=== PATIENT | female | born 1975 | race Caucasian/White ===

== ENCOUNTER 2019-11-18 10:08 | Day surgery (SDC) | payer MEDICARE ==
[~2019-11-18] VITALS: Ht 165.1 cm; Wt 77.1 kg
[~2019-11-18 10:08] MED LIST: HYDROmorphone 2 MG/ML VIAL IV PRN; IV RINGERS,LACTATED 1000ML 1,000 ML IV SCH; MORPHINE SULFATE 2 MG/ML VIAL. IV PRN; ONDANSETRON PF 4 MG/2 ML VIAL. IV PRN; PROCHLORPERAZINE 10 MG/2 ML VIAL. IV PRN; fentaNYL PF VIAL 100 MCG/2 ML VIAL IV PRN
--- NOTE | 2019-11-18 10:58 | PDOC1 ---
History and Physical Date of Admission Date of Admission DATE: 11/18/19 TIME: 10:57 Identification/Chief Complaint Chief Complaint for right foot surgery is npo, DENIES NEW SYMPTOMS, RIGHT FOOT PAINFUL X MONTHS, Surgery planned for today out patient Past Medical History Past Medical History schizophrenia Cardiovascular: HTN, Hyperlipidemia Pulmonary: No pertinent hx Psych: Addictions, Schizophrenia Musculoskeletal: Osteoarthritis Family History Family History: Hypertension, Obesity Social History Smoke: <1 pack per day ALCOHOL: other (BINGE DRINKS TWICE A WEEK, 6-8 BEERS) Drugs: None Current Medications Current Medications Current Medications Ondansetron HCl (Zofran) 4 mg PRN Q6HRS PRN IV NAUSEA/VOMITING; Start 11/18/19 at 07:00; Stop 11/19/19 at 06:59 Fentanyl Citrate (Fentanyl 2ml Vial) 25 mcg PRN Q5MIN PRN IV MILD PAIN 1-3; Start 11/18/19 at 07:00; Stop 11/19/19 at 06:59 Fentanyl Citrate (Fentanyl 2ml Vial) 50 mcg PRN Q5MIN PRN IV MODERATE TO SEVERE PAIN; Start 11/18/19 at 07:00; Stop 11/19/19 at 06:59 Morphine Sulfate (Morphine Sulfate) 1 mg PRN Q10MIN PRN IV SEVERE PAIN 7-10; Start 11/18/19 at 07:00; Stop 11/19/19 at 06:59 Ringer's Solution 1,000 ml @ 30 mls/hr Q24H IV ; Start 11/18/19 at 07:00; Stop 11/18/19 at 18:59 Hydromorphone HCl (Dilaudid) 0.5 mg PRN Q10MIN PRN IV SEV PAIN, Second choice; Start 11/18/19 at 07:00; Stop 11/19/19 at 06:59 Prochlorperazine Edisylate (Compazine) 5 mg PACU PRN PRN IV NAUSEA, MRX1; Start 11/18/19 at 07:00; Stop 11/19/19 at 06:59 Cefazolin Sodium/ Dextrose 50 ml @ 100 mls/hr 1X PREOP PRN IV PRIOR TO PROCEDURE; Start 11/18/19 at 06:00; Stop 11/18/19 at 18:00 Allergies Allergies: Coded Allergies: Sulfa (Sulfonamide Antibiotics) (Verified Allergy, Unknown, Hives, 11/18/19) aripiprazole (Verified Allergy, Unknown, Unknown, 11/18/19) quetiapine (Verified Allergy, Unknown, Unknown, 11/18/19) risperidone (Verified Allergy, Unknown, Unknown, 11/18/19) tramadol (Verified Allergy, Unknown, Nausea and Vomiting, 11/18/19) ziprasidone (Verified Allergy, Unknown, Unknown, 11/18/19) ROS General: No: Chills, Night Sweats, Fatigue, Malaise, Appetite, Other Eyes: No Blurry vision, No Decreased vision, No Double vision, No Dry eyes, No Excessive tearing, No Eye Pain, No Itchy Eyes, No Loss of vision, No Photophobia, No Scotomata, No Uses contacts, No Uses glasses, No Other HEENT: No: Heacaches, Visual Changes, Hearing change, Nasal congestion, Nasal discharge, Oral lesions, Sinus pain, Sore Throat, Epistaxis, Sneezing, Snoring, Tinnitus, Vertigo, Vocal changes, Other Hematological and Lymphatic: No: Bleeding Problems, Blood Clots, Blood Transfusions, Brusing, Night Sweats, Pallor, Swollen Lymph Nodes, Other Breast: No New/Changing Breast Lumps, No Nipple changes, No Nipple discharge, No Other Respiratory: No: Cough, Hemoptysis, Orthopnea, Pleuritic Pain, Shortness of breath, SOB with excertion, Sputum Changes, Stridor, Tachypnea, Wheezing, Other Cardiovascular: No Chest Pain, No Palpitations, No Orthopnea, No Paroxysmal Noc. Dyspnea, No Edema, No Lt Headedness, No Other Gastrointestinal: No Nausea, No Vomiting, No Abdominal Pain, No Diarrhea, No Constipation, No Melena, No Hematochezia, No Other Genitourinary: No Dysuria, No Frequency, No Incontinence, No Hematuria, No Retention, No Discharge, No Urgency, No Pain, No Flank Pain, No Other, No , No , No , No , No , No , No Musculoskeletal: Yes Gait Disturbance Neurological: Yes Gait Disturbance; No Behavorial Changes, No Bowel/Bladder ControlChng, No Confusion, No Dizzine ss, No Headaches, No Impaired Coord/balance, No Memory Loss, No Numbness/Tingling, No Seizures, No Speech Problems, No Tremors, No Visual Changes, No Weakness, No Other Skin: No Dry Skin, No Eczema, No Hair Changes, No Lumps, No Mole Changes, No Mottling, No Nail Changes, No Pruritus, No Rash, No Skin Lesion Changes, No Other, No Acne Physical Exam Physical Exam Constitutional: Well developed, well nourished, no acute distress, non-toxic appearance. [] HENT: Normocephalic, atraumatic, bilateral external ears normal, oropharynx moist, no oral exudates, nose normal. [] Eyes: PERRLA, EOMI, conjunctiva normal, no discharge. [] Neck: Normal range of motion, no tenderness, supple, no stridor. [] Cardiovascular:Heart rate regular rhythm, no murmur [] Lungs & Thorax: Bilateral breath sounds clear to auscultation [] Abdomen: Bowel sounds normal, soft, no tenderness, no masses, no pulsatile masses. [] Skin: Warm, dry, no erythema, no rash. [] Back: No tenderness, no CVA tenderness. [] Extremities: R GREAT TOE BUNION [] Neurologic: Alert and oriented X 3, normal motor function, normal sensory function, no focal deficits noted. [] Psychologic: Affect normal, judgement normal, mood normal. [] General: Alert, Oriented X3, Cooperative, No acute distress HEENT: Atraumatic, PERRLA, EOMI, Mucous membr. moist/pink, Other (POOR DENTITION) Lungs: Clear to auscultation, Normal air movement Heart: RRR, no thrills, no gallops, no murmurs Cardiovascular: S1, S2 Breasts: Not examined Abdomen: Normal bowel sounds, Soft, No tenderness, No hepatosplenomegaly Rectal Exam: not examined Extremities: No clubbing, No cyanosis, Other (BUNION RIGHT FOOT ) Skin: No breakdown Neuro: Normal speech, Cranial nerves 3-12 NL Psych/Mental Status: Mental status NL, Mood NL Labs Labs Laboratory Tests Test 11/18/19 10:35 Bedside Urine HCG, Qualitative Hcg negative (Negative) Laboratory Tests Test 11/18/19 10:35 Bedside Urine HCG, Qualitative Hcg negative (Negative) VTE Prophylaxis Ordered VTE Prophylaxis Devices: Yes VTE Pharmacological Prophylaxi: Yes Assessment/Plan Assessment/Plan impression 1. BUNION R GREAT TOE 2. HTN 3. HX schizophrenia 4. tobacco abuse disorder 5. hx binge drinking plan cbc, comp if ok, ok for OR TODAY appears low risk for per-operative complications ADVISED TO STOP SMOKING ADVISED TO STOP ALCOHOL ABUSE behaviors dvt prophylaxis D/W RN Justicifation of Admission Dx: Justifications for Admission: Justification of Admission Dx: Comment: (out patient) Comments: out pt surgery DONNA PELAYO MD Nov 18, 2019 10:58
[2019-11-18] MEDS ORDERED: FLUP25VI2 IJ (11:08)
[2019-11-18] MEDS ORDERED: DIPH25CA58 PO (11:08)
[2019-11-18] MEDS ORDERED: IBUP100O25 PO (11:08)
[2019-11-18 11:14] LABS: BASO # 0.1 x10^3/uL (0.0-0.2); BASO % 1 % (0-3); EOS # 0.1 x10^3/uL (0.0-0.7); EOS % 1 % (0-3); LYMPH # 2.3 x10^3/uL (1.0-4.8); LYMPH % 27 % (24-48); MEAN CORPUSCULAR HEMOGLOBIN 31 pg (25-35); MEAN CORPUSCULAR HGB CONC 33 g/dL (31-37); MEAN CORPUSCULAR VOLUME 94 fL (79-100); MONO # 0.8 x10^3/uL (0.0-1.1); MONO % 10 % (0-9); NEUT # 5.3 x10^3/uL (1.8-7.7); NEUT % 61 % (31-73); PLATELET COUNT 268 x10^3/uL (140-400); RED BLOOD COUNT 4.17 x10^6/uL (3.50-5.40); WHITE BLOOD COUNT 8.6 x10^3/uL (4.0-11.0)
[2019-11-18 11:28] LABS: CALCIUM 8.2 mg/dL (8.5-10.1); CREATININE 0.7 mg/dL (0.6-1.0); GFR 91.3; POTASSIUM 3.8 mmol/L (3.5-5.1)
[2019-11-18 11:34] LABS: ALBUMIN 3.9 g/dL (3.4-5.0); ALBUMIN/GLOBULIN RATIO 1.3 (1.0-1.7); TOTAL BILIRUBIN 0.3 mg/dL (0.2-1.0)
[2019-11-18] MEDS ORDERED: POVIDONE-IODINE 10% TOPICAL OINTMENT 28GM TUBE. TP ONE (11:36)
[2019-11-18] MEDS ORDERED: LIDOCAINE 1% Multi-Dose 20 ML VIAL. ONE (11:36)
[2019-11-18] MEDS ORDERED: BUPIVACAINE MPF 0.5% 30 ML VIAL. ONE (11:37)
[2019-11-18] MEDS ORDERED: DEXAMETHASONE SOD PHOS 4 MG/ML VIAL ONE ×2 (11:37→13:06)
[2019-11-18] MEDS ORDERED: ceFAZolin 2GM PREMIX 2 GM/50 ML BAG IV ONE (12:00)
[2019-11-18 12:01] LABS: PROTHROMBIN TIME PATIENT 13.2 SEC (11.7-14.0)
[2019-11-18 12:44] LABS: BARBITURATES NEG (NEG); BENZODIAZEPINES NEG (NEG); CANNABINOIDS NEG (NEG); COCAINE NEG (NEG); METHADONE NEG (NEG); OPIATES NEG (NEG); PHENCYCLIDINE NEG (NEG)
[2019-11-18 12:46] LABS: AMPHETAMINE/METHAMPHETAMINE NEG (NEG)
[2019-11-18] MEDS ORDERED: LIDOCAINE 2% PF 5 ML VIAL. ONE (13:06)
[2019-11-18] MEDS ORDERED: ONDANSETRON PF 4 MG/2 ML VIAL. ONE (13:06)
[2019-11-18] MEDS ORDERED: SEVOFLURANE 61 TO 120 MINUTES. IH ONE (13:06)
[2019-11-18] MEDS ORDERED: PROPOFOL 10 MG/ML (20ML) VIAL. IV ONE (13:06)
[2019-11-18] MEDS ORDERED: fentaNYL PF VIAL 100 MCG/2 ML VIAL ONE (14:17)
[2019-11-18] MEDS ORDERED: SEVOFLURANE > 120 MINUTES. IH ONE (14:47)
--- NOTE | 2019-11-18 15:09 | PDOC4 ---
OPERATIVE NOTE: Surgeon: Yaima Pre operative diagnosis: HAllux valgus right foot Post op diagnosis: same Procedure: arthrodesis 1st MPJ right foot Anesthesia: LMA with local chacko block Hemostasis: Right ankle tourniquet at 250mmHg EBL 1mL Implants (2) 3.0 and (1) 4.0 partial threaded cannulated [id number] screws Intraoperative findings: Note eroding of dorsal and medial aspect of metatarsal head. VERONICA DAVALOS DPM Nov 18, 2019 15:09
--- NOTE | 2019-11-18 15:49 | OP ---
DATE OF SURGERY: 11/18/2019 PREOPERATIVE DIAGNOSIS: Hallux valgus, right foot. POSTOPERATIVE DIAGNOSIS: Hallux valgus, right foot. PROCEDURE: Arthrodesis of the first metatarsophalangeal joint, right foot. SURGEON: Kristina Erwin DPM ANESTHESIA: MAC with local. PROCEDURE: Arthrodesis of first metatarsophalangeal joint, right foot. HEMOSTASIS: Right ankle tourniquet at 250 mmHg. INDICATIONS: The patient is a 44-year-old female with chronic pain to the right foot due to severe hallux valgus deformity. The patient with hallux, which is laterally deviated and in about second and third toes due to crossover. She is unable to wear any shoes. She is unable to walk long distances due to the pain and she wished to proceed. Conservative treatment of wide extra depth shoes and accommodative padding has been unsuccessful and thus she wished to proceed with above said procedure. I discussed risks, benefits, complications to include delayed or nonhealing, need for further surgery; loss of toe, foot, limb or life; overcorrection, under correction, need for further surgery, delayed or nonunion, infection, DVT, pulmonary embolism, chronic pain, numbness, tingling, burning, need for further surgery. All questions were answered. The patient had signed consent freely and in chart. No guarantees are made. DESCRIPTION OF PROCEDURE: The patient was transported to the operating room via a cart and placed on the operating table in supine position. Final verification of the surgery, the patient, and limb was performed. The patient was given IV Ancef preoperatively. First, a Richard block was given to the right foot consisting of a 1:1 mixture of 1% lidocaine plain and 0.5% Marcaine plain. A well-padded tourniquet was placed over the right ankle and the well-padded tourniquet was placed over the right ankle and the right foot was then prepped and draped in the usual aseptic manner. Attention was directed to the right first ray where a 5 cm incision was made medial to the extensor hallucis longus tendon. This was deepened down to the level of the joint capsule and small vessels that were cauterized. A linear incision was made into the joint capsule and reflected from the base of the proximal phalanx and the distal one-third of the first metatarsal. A sagittal saw was then used to resect the medial eminence of the first metatarsal head. Next, a McGlamry retractor was used to free up the sesamoid apparatus. A lateral release was performed. The joint was then used reamers to remove the remaining first metatarsal head into the base of the proximal phalanx. Reamers were used to remove all this and first ray was then placed in a rectus position correcting the deformity and putting in rectus position. A 0.062 K wire was used for a temporary fixation and then two crossed 3-0 partially threaded cannulated screws were then attempted from the proximal medial first metatarsal distally to the base of the proximal phalanx, then crossed the other screw from the medial proximal phalanx to the lateral aspect of the first metatarsal and it was felt that these were not producing solid fixation. Thus, a 4.0 partially threaded cannulated screw was then placed through the original 0.062 guidewire and solid fixation was achieved. I placed two more 3-0 partially threaded cannulated Endobon screws were then placed, one distal to proximal and the other proximal to distal. Solid fixation was then achieved and no motion was then noted across the MPJ joint with stress. Thus, the wound was copiously irrigated with sterile saline and the joint capsule was reapproximated with 2-0 Vicryl. Skin was reapproximated with 3-0 Vicryl and 4-0 nylon. Postop block was given of 10 mL of 0.5% Marcaine plain. Betadine ointment, Adaptic gauze, 4 x 4s, Kerlix bandage was then placed over the incision, Kerlix bandage roll and Eduardo bandage. The tourniquet was deflated and good perfusion was noted to all digits of the right foot. The patient was transferred to the PACU in stable condition. Note, the C-arm fluoroscopy was utilized during this procedure to note that satisfactory alignment and solid fixation was achieved of the screw and satisfactory alignment of the first ray. The patient tolerated both anesthesia and procedure well and was transported to the PACU in stable condition. Vascular status intact to the right foot and vital signs stable. KRISTINA ERWIN DPM DR: CHRISTINA/dean JOB#: [id number] / [id number]
[2019-11-18 15:55] VITALS: BP 140/78
[2019-11-18] MEDS ORDERED: HYDR-3164 PO (16:03)
[2019-11-18] MEDS ORDERED: IBUP-1060 PO (16:03)
--- NOTE | 2019-11-18 16:36 | RAD ---
EXAM: Right foot, 2 views. HISTORY: Internal fixation. COMPARISON: None. FINDINGS: 2 views of the right foot are obtained. There is evidence of a distal first metatarsal osteotomy and internal fixation of the first metatarsal phalangeal joint with 3 screws. There is surrounding soft tissue gas and swelling due to recent surgery. There is a small plantar spur. IMPRESSION: Postoperative changes involving the distal first metatarsal and instrumented fusion of the first metatarsal phalangeal joint. Electronically signed by: Navya Turner MD (11/18/2019 4:33 PM) [facility]
== END 2019-11-18 16:38 | disposition home or self-care (01) ==
LOC: SURG 10:08
PROVIDERS: ATTEND Podiatrist Foot & Ankle Surgery
DX: M20.11 Hallux valgus (acquired), right foot (principal); I10 Essential (primary) hypertension; E78.5 Hyperlipidemia, unspecified; F17.210 Nicotine dependence, cigarettes, uncomplicated; Z79.01 Long term (current) use of anticoagulants; Z79.899 Other long term (current) drug therapy; Z87.39 Personal history of other diseases of the musculoskeletal system and connective tissue; Z88.6 Allergy status to analgesic agent; Z88.8 Allergy status to other drugs, medicaments and biological substances
CPT/HCPCS: 28750; 36415; 73630; 80053; 80307; 81025; 85025; 85610; A7015; C1713; J0696; J1100; J2405; J2704; J3010; J3490; J7120

== ENCOUNTER 2021-01-27 12:50 | Emergency (ER) | payer MEDICARE ==
[~2021-01-27] VITALS: Ht 167.6 cm; Wt 82.0 kg
[~2021-01-27 12:50] MED LIST changes: +DIPH25CA58 PO; +FLUP25VI2 IJ; +HYDR-3164 PO; -HYDROmorphone 2 MG/ML VIAL IV PRN; +IBUP-1060 PO; +IBUP-1739 PO; -IV RINGERS,LACTATED 1000ML 1,000 ML IV SCH; -MORPHINE SULFATE 2 MG/ML VIAL. IV PRN; -ONDANSETRON PF 4 MG/2 ML VIAL. IV PRN; -PROCHLORPERAZINE 10 MG/2 ML VIAL. IV PRN; -fentaNYL PF VIAL 100 MCG/2 ML VIAL IV PRN
[2021-01-27] MEDS ORDERED: MULTIVIT INFUSN,ADULT 4,VIT K 10 ML, THIAMINE INJ 100 MG, FOLIC ACID INJ 1 MG in IV NOR... IV ONE (13:30)
[2021-01-27] MEDS ORDERED: ONDANSETRON PF 4 MG/2 ML VIAL. IVP ONE (13:45)
[2021-01-27] MEDS ORDERED: FAMOTIDINE 20 MG/2 ML VIAL IVP ONE (13:45)
--- NOTE | 2021-01-27 13:52 | PHYS DOC ---
Past Medical History Additional Past Medical Histor: schizoaffective, Past Surgical History: Tubal ligation, Other Additional Past Surgical Histo: R great toe Smoking Status: Current Every Day Smoker Alcohol Use: Heavy Social History Narrative: "afia" General Adult EDM: Chief Complaint: FOOT INJURY PAIN HPI: HPI: 45 yo F PMH schizophrenia, hypertension, tobacco use and alcohol dependence, presents to the ED BIBEMS with c/o shaking of her arms and legs ports that she normally drinks alcohol daily, has not drank for the past 2 weeks. Also reports she feels as if she stubbed her toe and prior hardware is coming out. Reports associated nausea. Has not received her second Covid vaccine. Review of Systems: Review of Systems: Constitutional: Denies fever or chills. [] Eyes: Denies change in visual acuity. [] HENT: Denies nasal congestion or sore throat. [] Respiratory: Denies cough or shortness of breath. [] Cardiovascular: Denies chest pain or edema. [] GI: Denies vomiting, bloody stools or diarrhea. [] : Denies dysuria or vaginal bleeding Musculoskeletal: Denies back pain or joint pain. [] Integument: Denies rash or diaphoresis Neurologic: Denies headache, focal weakness or sensory changes. [] Endocrine: Denies polyuria or polydipsia. [] Lymphatic: Denies swollen glands. [] Psychiatric: Denies depression or anxiety. [] Heart Score: C/O Chest Pain: No Risk Factors: Risk Factors: DM, Current or recent (<one month) smoker, HTN, HLP, family history of CAD, obesity. Risk Scores: Score 0 - 3: 2.5% MACE over next 6 weeks - Discharge Home Score 4 - 6: 20.3% MACE over next 6 weeks - Admit for Clinical Observation Score 7 - 10: 72.7% MACE over next 6 weeks - Early Invasive Strategies Current Medications: Current Medications Medications (Trade) Dose Ordered Sig/Sania Start Time Stop Time Status Last Admin Dose Admin Famotidine (Pepcid Vial) 20 mg 1X ONCE 01/27/21 13:45 01/27/21 13:46 UNV Lorazepam (Ativan Inj) 2 mg 1X ONCE 01/27/21 13:30 01/27/21 13:34 DC Multivitamins 10 ml/Thiamine HCl 100 mg/Folic Acid 1 mg/Sodium Chloride 1,011.2 ml @ 1,000.088 mls/hr 1X ONCE 01/27/21 13:30 01/27/21 14:30 Ondansetron HCl (Zofran) 4 mg 1X ONCE 01/27/21 13:45 01/27/21 13:46 UNV Allergies: Allergies: Allergies Coded Allergies Type Severity Reaction Last Updated Verified Sulfa (Sulfonamide Antibiotics) Allergy Unknown Hives 11/18/19 Yes aripiprazole Allergy Unknown Unknown 11/18/19 Yes quetiapine Allergy Unknown Unknown 11/18/19 Yes risperidone Allergy Unknown Unknown 11/18/19 Yes tramadol Allergy Unknown Nausea and Vomiting 11/18/19 Yes ziprasidone Allergy Unknown Unknown 11/18/19 Yes Physical Exam: PE: Constitutional: Afebrile, unkept disheveled appearance HENT: Normocephalic, atraumatic, dry mucous membranes with no tongue fasciculations Eyes: EOMI, conjunctiva normal, no discharge. Neck: Normal range of motion, supple, Cardiovascular: S1/2 present, tachycardic, Lungs & Thorax: Speaking in full sentences, bilateral equal chest rise, no tachypnea or increased work of breathing Abdomen: soft, no tenderness, Skin: Warm, dry, no erythema, no rash. [] Back: No tenderness, no CVA tenderness. [] Extremities: No tenderness, no cyanosis, tremulous of the upper and lower extremities Neurologic: Alert and oriented X 3, normal motor function, normal sensory function, no focal deficits noted. [] Psychologic: Affect normal, judgement normal, mood normal. [] Current Patient Data: Vital Signs: Vital Signs Date Time Temp Pulse Resp B/P (MAP) Pulse Ox O2 Delivery O2 Flow Rate FiO2 01/27/21 13:15 98.3 121 20 189/103 (98) 95 Room Air 98.3 EKG: EKG: Sinus tachycardia 100 bpm, no axis deviation, normal intervals, no T wave inv ersion, no ST elevation or ST depression Radiology/Procedures: Radiology/Procedures: IMAGING REPORT Signed PATIENT: ONEIL GONZALEZ AACCOUNT: [id number] : 1975 LOCATION: ER AGE: 45 SEX: F EXAM STATUS: REG ER ORD. PHYSICIAN: POONAM HO DO REASON: nausea PROCEDURE: CHEST AP ONLY EXAMINATION: Right foot and asked radiographs. VIEWS: Single view of the chest and 3 views of the right foot COMPARISON: 11/18/2019 and 11/20/2015 INDICATION:45 years, Female, nausea. Patient feels like the pin in the great toe has moved. FINDINGS: Chest radiograph: Normal cardiomediastinal silhouette. No focal consolidation, pleural effusion or pneumothorax. No acute osseous process. Right foot: Redemonstrated fixation metallic screws at the first metatarsophalangeal joint. The tip of the screws appear to be extending beyond the cortex. New thompson-hardware lucencies measures about 2 mm maximum thickness. Diffuse soft tissue swelling about the metatarsophalangeal joint. Subchondral sclerosis of the joint. No acute osseous process. IMPRESSION: 1. No acute chest finding. 2. Redemonstrated fixation screws at the first metatarsophalangeal joint. The tip of the screws appear to be extending beyond the cortex. New thompson-hardware lucencies measures about 2 mm maximum thickness, concerning for loosening. No acute osseous process. Electronically signed by: Talisha Velázquez MD (01/27/2021 2:14 PM) [facility] DICTATED and SIGNED BY: TALISHA VELÁZQUEZ MD DATE: 01/27/21 [id number] 0 Course & Med Decision Making: Course & Med Decision Making Pertinent Labs and Imaging studies reviewed. (See chart for details) Concern for alcohol intoxication, tremors improved with IV Ativan. On repeat BP 172/81, HR 92. Labs grossly unremarkable with mild electrolyte abnormalities and nonspecific leukocytosis. Possible malpositioning of her right toe hardware. Will discharge home with strict ED return precautions were given for trauma, fever, intractable nausea or vomiting or worsening alcohol withdrawal. Encouraged urgent outpatient follow-up with PMD and RSI/Orthopedic surgery. Life-threatening processes were considered but are low suspicion at this time, given history, physical exam and ED workup. Pt was educated on all prescription medications and adverse effects. All patient's questions were answered and pt was stable at time of discharge. Life/limb-threatening differential includes but is not limited to, end organ damage/sepsis, trauma/abuse/neglect, neurologic deficit, alcohol/drug ingestion, toxidrome, suicidal/homicidal ideations plans or attempts, psychosis or mental illness resulting in self neglect and inability to care for self. I have spoken with the patient and/or caregivers. I explained the patient's condition, diagnoses and treatment plan based on the information available to me at this time. I have answered the patient and/or caregiver's questions and addressed any concerns. The patient and/or caregivers have a good understanding of patient's diagnosis, condition and treatment plan as can be expected at this point. Vital signs have been stable. Patient's condition is stable and appropriate for discharge from the emergency department. Patient will pursue further outpatient evaluation with primary care physician or other designated or consulting physician as outlined in the discharge instructions. The patient and/or caregivers are agreeable to this plan of care and follow-up instructions have been explained in detail. The patient and/or caregivers have received these instructions in written form and have expressed an understanding of the discharge instructions. The patient and/or caregivers are aware that any significant change of condition or worsening of symptoms should prompt immediate return to this or the closest emergency department or call to 1. Anderson Disclaimer: Anderson Disclaimer: This electronic medical record was generated, in whole or in part, using a voice recognition dictation system. Departure Departure Impression: Primary Impression: Alcohol dependence Disposition: 01 HOME / SELF CARE / HOMELESS Condition: STABLE Referrals: JENNIFER EM MD (PCP) Follow-up with your primary care physician in 24 to 48 hours OR FOLLOW UP WITH FAMILY MEDICINE: [address] [facility] [address] [place] [address] Patient Instructions: Alcohol Intoxication, Alcohol Problems, Alcohol Withdr awal Additional Instructions: [facility]. AND FOR SUBSTANCE ABUSE MANAGEMENT [address] [place] [address] 24-hour crisis line: [phone] FOLLOW UP WITH ORTHOPEDICS: FOR DEFINITIVE MANAGEMENT Orthopaedic Surgery [address] [facility], [facility] [address] [place] [address] EMERGENCY DEPARTMENT GENERAL DISCHARGE INSTRUCTIONS Thank you for coming to [facility] Emergency Department (ED) today and trusting us with you care. We trust that you had a positive experience in our Emergency Department. If you wish to speak to the department management, you may call the Director at [phone]. YOUR FOLLOW UP INSTRUCTIONS ARE FOLLOWS: 1. Do you have a private Doctor? If you do not have a private doctor, please ask for a resource list of physicians or clinics that may be able to assist you with follow up care. 2. The Emergency Physicain has interpreted your x-rays. The X-Ray specialist will also review them. If there is a change in the findings, you will be notified in 48 hours when at all possible. 3. A lab test or culture has been done, your results will be reviewed and you will be notified if you need a change in treatment. ADDITIONAL INSTRUCTIONS AND INFORMATION: 1. Your care today has been supervised by a physician who is specially trained in emergency care. Many problems require more than one evaluation for a complete diagnosis and treatment. We recommend that you schedule your follow up appointment as recommended to ensure complete treatment of you illness or injury. If you are unable to obtain follow up care and continue to have a problem, or if your condition worsens, we recommend that you return to the ED. 2. We are not able to safely determine your condition over the phone nor are we able to give sound medical advice over the phone. For these safety reasons, if you call for medical advice we will ask you to come to the ED for further evaluation. 3. If you have any questions regarding these discharge instructions please call the ED at [phone]. SAFETY INFORMATION: In the interest of safety, wellness, and injury prevention; we encourage you to wear your sealbelt, if you smoke; quite smoking, and we encourage family to use a protective helmet for bicycling and other sporting events that present an increased risk for head injury. IF YOUR SYMPTOMS WORSEN OR NEW SYMPTOMS DEVELOP, OR YOU HAVE CONCERNS ABOUT YOUR CONDITION; OR IF YOUR CONDITION WORSENS WHILE YOU ARE WAITING FOR YOUR FOLLOW UP APPOINTMENT; EITHER CONTACT YOUR PRIMARY CARE DOCTOR, THE PHYSICIAN WHOSE NAME AND NUMBER YOU WERE GIVEN, OR RETURN TO THE ED IMMEDIATELY. Scripts Chlordiazepoxide Hcl (CHLORDIAZEPOXIDE HCL) 25 Mg Capsule 25 MG PO PRN PRN for WITHDRAWAL IRRITABILITY MDD 300 mg/daily, #30 CAP take 2 tablets by mouth, every 8 hours x 2 days, take 1 tablet by mouth, every 8 hours x 2 days, take 1 tablet by mouth, every 8 hours prn Prov: POONAM HO DO 01/27/21 POONAM HO DO Jan 27, 2021 13:52
[2021-01-27 13:54] LABS: BASO # 0.1 x10^3/uL (0.0-0.2); BASO % 1 % (0-3); EOS % 0 % (0-3); HEMATOCRIT 39.9 % (36.0-47.0); HEMOGLOBIN 13.6 g/dL (12.0-15.5); LYMPH # 1.6 x10^3/uL (1.0-4.8); LYMPH % 11 % (24-48); MEAN CORPUSCULAR HEMOGLOBIN 31 pg (25-35); MEAN CORPUSCULAR HGB CONC 34 g/dL (31-37); MEAN CORPUSCULAR VOLUME 91 fL (79-100); MONO # 0.9 x10^3/uL (0.0-1.1); MONO % 7 % (0-9); NEUT # 11.4 x10^3/uL (1.8-7.7); NEUT % 81 % (31-73); PLATELET COUNT 409 x10^3/uL (140-400); RED BLOOD COUNT 4.41 x10^6/uL (3.50-5.40); RED CELL DISTRIBUTION WIDTH 12.7 % (11.5-14.5); WHITE BLOOD COUNT 14.1 x10^3/uL (4.0-11.0)
[2021-01-27 14:14] LABS: CALCIUM 11.2 mg/dL (8.5-10.1); CREATININE 0.9 mg/dL (0.6-1.0); POTASSIUM 3.4 mmol/L (3.5-5.1)
--- NOTE | 2021-01-27 14:16 | RAD ---
EXAMINATION: Right foot and asked radiographs. VIEWS: Single view of the chest and 3 views of the right foot COMPARISON: 11/18/2019 and 11/20/2015 INDICATION:45 years, Female, nausea. Patient feels like the pin in the great toe has moved. FINDINGS: Chest radiograph: Normal cardiomediastinal silhouette. No focal consolidation, pleural effusion or pn eumothorax. No acute osseous process. Right foot: Redemonstrated fixation metallic screws at the first metatarsophalangeal joint. The tip o f the screws appear to be extending beyond the cortex. New thompson-hardware lucencies measures about 2 m m maximum thickness. Diffuse soft tissue swelling about the metatarsophalangeal joint. Subchondral sc lerosis of the joint. No acute osseous process. IMPRESSION: 1. No acute chest finding. 2. Redemonstrated fixation screws at the first metatarsophalangeal joint. The tip of the screws appe ar to be extending beyond the cortex. New thompson-hardware lucencies measures about 2 mm maximum thickne ss, concerning for loosening. No acute osseous process. Electronically signed by: Castro Velázquez MD (01/27/2021 2:14 PM) [facility] [place]
[2021-01-27 14:22] LABS: ALBUMIN 4.1 g/dL (3.4-5.0); MAGNESIUM 1.7 mg/dL (1.8-2.4); TOTAL BILIRUBIN 0.3 mg/dL (0.2-1.0); TOTAL PROTEIN 8.1 g/dL (6.4-8.2)
[2021-01-27 15:45] LABS: BILIRUBIN,URINE NEGATIVE (NEG); CLARITY,URINE CLEAR; COLOR,URINE YELLOW; NITRITE,URINE NEGATIVE (NEG); PH,URINE 6.5 (<5.0-8.0); PROTEIN,URINE NEGATIVE (NEG-TRACE); UROBILINOGEN,URINE 0.2 mg/dL (0.2 mg/dL)
[2021-01-27 15:52] LABS: BARBITURATES NEG (NEG); BENZODIAZEPINES NEG (NEG); CANNABINOIDS NEG (NEG); COCAINE NEG (NEG); METHADONE NEG (NEG); OPIATES NEG (NEG); PHENCYCLIDINE NEG (NEG)
[2021-01-27 15:53] LABS: BACTERIA,URINE 0 /HPF (0-FEW); RBC,URINE 0 /HPF (0-2); WBC,URINE OCC /HPF (0-4)
[2021-01-27 16:09] LABS: AMPHETAMINE/METHAMPHETAMINE NEG (NEG)
[2021-01-27 16:36] VITALS: BP 172/87
[2021-01-27] MEDS ORDERED: CHLO25CA9 PO (16:51)
--- NOTE | 2021-01-27 20:56 | EKG ---
[facility] [address] [place] [address] Test Date: 2021-01-27 Test Time: 13:52:24 Pat Name: ONEIL GONZALEZ Department: Room: Gender: F [employer]: : [id number] Requested By: POONAM HO Order Number: [id number] Reading MD: Measurements Intervals [place] Rate: 109 P: 51 IN: 146 QRS: -5 QRSD: 84 T: 38 QT: 334 QTc: 451 Interpretive Statements SINUS TACHYCARDIA LEFTWARD AXIS QRS(T) CONTOUR ABNORMALITY CONSISTENT WITH ANTEROLATERAL INFARCT PROBABLY OLD CONSISTENT WITH INFERIOR INFARCT PROBABLY OLD ABNORMAL ECG RI6.02 No previous ECG available for comparison
== END 2021-01-27 17:14 | disposition home or self-care (01) ==
LOC: ER 12:50
DX: F10.20 Alcohol dependence, uncomplicated (principal); Y90.9 Presence of alcohol in blood, level not specified; F25.9 Schizoaffective disorder, unspecified; I10 Essential (primary) hypertension; R00.0 Tachycardia, unspecified; F17.200 Nicotine dependence, unspecified, uncomplicated; Z88.2 Allergy status to sulfonamides; Z88.6 Allergy status to analgesic agent; Z88.8 Allergy status to other drugs, medicaments and biological substances
CPT/HCPCS: 36415; 71045; 73660; 80053; 80307; 81001; 81025; 83690; 83735; 84484; 85025; 93005; 96365; 96375; 96376; 99285; G0480; J2060; J2405; J3411; J3490; J7030